=== PATIENT | female | born 1965 | race Caucasian/White ===

== ENCOUNTER 2025-06-26 09:33 | Emergency (ER) | payer OTHER ==
[~2025-06-26] VITALS: Ht 165.1 cm; Wt 88.5 kg
--- NOTE | 2025-06-26 10:15 | ED.PDOC ---
Back pain HPI HPI Comments A 61 YEAR OLD FEMALE PRESENTS TO THE ED WITH COMPLAINT OF NECK PAIN AND LEFT SIDE FACIAL PAIN. PT STATES SHE HAS BEEN HAVING NECK PAIN AND THE PAIN RADIATES TO BILATERAL UPPER EXTREMITY WITH NUMBNESS AND TINGLING SENSATION THAT STARTED EARLIER THIS AM AFTER WAKING FROM SLEEP. PER PT, SHE HAS HX OF NECK PAIN DUE TO WORK RELATED INJURY SINCE LAST YEAR. SHE ALSO HAS L JAW PAIN FROM INJURY LAST YEAR AND IS STILL HAVING PAIN. PT STATES SHE CAME FOR [facility] LAST YEAR AND STATES SHE HAD MRI WHICH SHOWED DDD OF C-SPINE. PT STATES [employer] HAS DONE NOTHING AND CAME TODAY FOR EXACERBATION OF HER SYMPTOMS BUT STATES SHE HAS NOT TAKEN PAIN MEDICATIONS. PATIENT DENIES NEW INJURY, FEVER, CHILLS, SHORTNESS OF BREATH, CHEST PAIN, ABDOMINAL PAIN, NAUSEA, VOMITING, HEADACHE, OR OTHER COMPLAINTS. NO OTHER SYMPTOMS OR MODIFYING FACTORS AT THIS TIME. PATIENT IS ALERT, ORIENTED X 4, AND HAS STEADY GAIT. Chief Complaint: Neck Pain Time Seen by MD: 10:12 Reviewed Notes: Nurses Notes, Medications, Allergies Allergies: Coded Allergies: Codeine (Verified Allergy, Intermediate, 06/26/25) Home Meds Active Scripts Acetaminophen (Tylenol 8 Hour Arthritis) 650 Mg Tab, 650 MG PO TID, #60 TAB Prov:LUCIANAPANCHO SOLORIO 06/26/25 Information Source: Patient Mode of Arrival: Ambulatory Brought in by: SELF Timing: Days, Came on: Gradually Duration: Since onset, Days Location of Back pain: (B) Cervical, Other (BILATERAL UPPER EXTREMITY. ) Severity: Moderate Prehospital treatment: Treatment Quality: Aching, Burning, Cramping Onset: Spontaneous Circumstance: Work Related History of: Chronic Back Pain Modifying Factors: Movement, Twisting Associated signs and symptoms: None Past Medical History Past Medical History (Other): DDD OF NECK Surgical History: Denies all surgeries [employer] History: No Pertinent [employer] History Family History Family History: Reviewed,noncontributory to illness Social History Smoker: Non-Smoker Alcohol: Denies ETOH Use Drugs: Denies Drug Use Lives In: Home Constitutional: denies: chills, diaphoresis, fatigue, fever, malaise, sweats, weakness, others EENTM: denies: blurred vision, double vision, ear bleeding, ear discharge, ear drainage, ear pain, ear ringing, eye pain, eye redness, hearing loss, mouth pain, mouth swelling, nasal discharge, nose bleeding, nose congestion, nose pain, photophobia, tearing, throat pain, throat swelling, voice changes, others Respiratory: denies: cough, hemoptysis, orthopnea, SOB at rest, shortness of breath, SOB with excertion, stridor, wheezing, others Cardiovascular: denies: chest pain, dizzy spells, diaphoresis, Dyspnea on exertion, edema, irregular heart beat, left arm pain, lightheadedness, palpitations, PND, syncope, others Gastrointestinal: denies: abdomen distended, abdominal pain, blood streaked bowels, constipated, diarrhea, dysphagia, difficulty swallowing, hematemesis, melena, nausea, poor appetite, poor fluid intake, rectal bleeding, rectal pain, vomiting, others Genitourinary: denies: abnormal vagina bleeding, burning, dyspareunia, dysuria, flank pain, frequency, hematuria, incontinence, pain, , vagina discharge, urgency, others Neurological: denies: dizziness, fainting, headache, left sided numbness, left sided weakness, numbness, paresthesia, pre-existing deficit, right sided numbness, right sided weakness, seizure, speech problems, tingling, tremors, weakness, others Musculoskeletal: reports: muscle pain, neck pain, others (LEFT SIDE JAW PAIN ); denies: back pain, gout, joint pain, joint swelling, muscle stiffness Integumetry: denies: bruises, change in color, change in hair/nails, dryness, laceration, lesions, lumps, rash, wounds, others Allergic/Immunocompromised: denies: Difficulty Healing, Frequent Infections, Hives, Itching, others Hematologic/Lymphatic: denies: anemia, blood clots, easy bleeding, easy bruising, swollen glands, others Endocrine: denies: excessive hunger, excessive sweating, excessive thirst, excessive urination, flushing, intolerance to cold, intolerance to heat, unexplained weight gain, unexplained weight loss, others Psychiatric: reports: anxiety; denies: bipolar disorder, depression, hopeless, panic disorder, schizophrenia, sleepless, suicidal, others All Other Systems: Reviewed and Negative Physical Exam General Appearance: Mild Distress, Obese, Other (ANXIETY ) HEENT: Normal ENT Inspection, PERRL/EOMI, Pharynx Normal, TMs Normal, Other (TENDERNESS ON LEFT SIDE JAW, NO BONY TENDERNESS, SWELLING AND DEFORMITY. ) Neck: Full Range of Motion, Normal Inspection, Supple, Tender Lateral (TENDERNESS AND MUSCLE SPASM ON POSTERIOR NECK, NO BONY TENDERNESS, SWELLING AND DEFORMITY. ) Respiratory: Chest Non-Tender, Lungs Clear, No Accessory Muscle Use, No Respir atory Distress, Normal Breath Sounds Cardiovascular: No Edema, No JVD, No Murmur, No Gallop, Normal Peripheral Pulses, Regular Rate/Rhythm Breast Exam: Deferred Gastrointestinal: No Organomegaly, Non Tender, No Pulsatile Mass, Normal Bowel Sounds, Soft Genitalia: Deferred Pelvic: Deferred Rectal: Deferred Extremities: No calf tenderness, Normal capillary refill, Normal inspection, Normal range of motion, Non-tender, No pedal edema Musculoskeletal : Apperance: Normal Neurologic: Alert, rum processing operator II-XII nml as Tested, No Motor Deficits, Normal Affect, Normal Mood, No Sensory Deficits Cerebellar Function: Normal Reflexes: Normal Skin: Dry, Normal Color, Warm Peripheral Pulses: 2+ carotid (R), 2+ carotid (L) Lymphatic: No Adenopathy Was a procedure done? Was a procedure done?: No Back Pain Differential Dx Differential Diagnosis: Musculoskeletal Pain, Strain, Other (DDD OF NECK, CHRONIC LEFT JAW PAIN ) X-Ray, Labs, Meds, VS Vital Signs Date Time Temp Pulse Resp B/P (MAP) Pulse Ox O2 Delivery O2 Flow Rate FiO2 06/26/25 11:36 102 18 95 Room Air 06/26/25 11:36 98.5 102 18 139/94 (109) 95 98.5 06/26/25 09:40 97.9 101 18 120/97 95 97.9 Current Medications Medications (Trade) Dose Ordered Sig/Jignesh Route Start Time Stop Time Status Last Admin Acetaminophen/ Hydrocodone Bitart ([place] 10/325MG Tab) 1 tab ONCE ONCE PO 06/26/25 11:00 06/26/25 11:01 DC 06/26/25 11:07 [place] [address] Ph: [phone] DIAGNOSTIC IMAGING Diagnostic Imaging Report : [id number] Signed PATIENT: CARINA HUTTON ACCT: [id number] UNIT: [id number] : 1965 LOC: ER ROOM / BED: / AGE / SEX: 60 / F ADM STATUS: REG ER SERVICE 1008 ORDERING PHYSICIAN: PANCHO CHOWDHURY PROCEDURE(s): MANDB - MANDIBLE COMPLETE MIN 4V REASON: LEFT JAW AND INJURY ONE YEAR AGO ORDER NUMBER(s): [id number], ACCESSION NUMBER(s): [id number] EXAM: XY MANDIBLE COMPLETE MIN 4V CLINICAL INDICATION: LEFT JAW AND INJURY ONE YEAR AGO TECHNIQUE: XY MANDIBLE COMPLETE MIN 4V Comparison: None FINDINGS/IMPRESSION: There is no evidence of acute fracture or dislocation. The visualized joint space is well maintained. The alignment is anatomical. There is no radiopaque foreign body. ATED BY: AMARILIS ORNELAS MD DICTATED DATE/TIME: 06/26/25 1100 SIGNED BY: AMARILIS ORNELAS MD SIGNED DATE/TIME: 06/26/25 1100 CC: [place] [address] Ph: [phone] DIAGNOSTIC IMAGING Diagnostic Imaging Report : [id number] Signed PATIENT: CARINA HUTTON ACCT: [id number] UNIT: [id number] : 1965 LOC: ER ROOM / BED: / AGE / SEX: 60 / F ADM STATUS: REG ER SERVICE 1008 ORDERING PHYSICIAN: PANCHO CHOWDHURY PROCEDURE(s): NKICT - NECK WITHOUT CONTRAST REASON: NECK PAIN TO BILATERAL ARMS, HX OF DDD ORDER NUMBER(s): [id number], ACCESSION NUMBER(s): [id number] EXAM: CT NECK WITHOUT CONTRAST INDICATION: NECK PAIN TO BILATERAL ARMS, HX OF DDD Exam Date: 06/26/2025 10:31 AM COMPARISON: XY MANDIBLE COMPLETE MIN 4V on DOS: 06/26/25 TECHNIQUE: CT of the neck without intravenous contrast. RADIATION DOSE: CTDIvol: 15.94 mGy, DLP: 443.2 mGy*cm FINDINGS: There is no evidence of cervical mass lesion, pathologically enlarged lymph nodes or fluid collection. Mild to moderate diffuse thickening of the esophagus; nonspecific. The fat planes of the neck appear intact. The airway and larynx are unremarkable. The parotid, submandibular and thyroid glands are unremarkable. The vascular structures of the neck appear patent. The visualized lung apices are clear. The limited visualized portions of the brain are unremarkable. Multilevel degenerative changes of the spine. IMPRESSION: No evidence of cervical mass lesion, pathologically enlarged lymph nodes or fluid collection. Mild to moderate diffuse thickening of the esophagus is nonspecific but may be seen in esophagitis. Clinical correlation advised. Multilevel degenerative changes of the spine. ATED BY: AUSTIN PUGH MD DICTATED DATE/TIME: 06/26/251124 SIGNED BY: AUSTIN PUGH MD SIGNED DATE/TIME: 06/26/251124 CC: X-Ray, Labs, Meds, VS Comment COURSE: EXTERNAL MEDICAL RECORDS REVIEWED: [NONE] INDEPENDENT HISTORIANS: [NONE] SOCIAL DETERMINANTS OF HEALTH: [NONE] LABS ORDERED: NONE REVIEWED AND INTERPRETED RESULTS: NONE IMAGING ORDERED: CT NECK W/O CONTRAST, MANDIBLE X-RAY TREATMENTS ORDERED: NORCO PO PROCEDURES PERFORMED: NONE CRITICAL CARE TIME: NONE I HAVE DISCUSSED THE PATIENT WITH THE ATTENDING PHYSICIAN DR. GILBERT AND HE AGREES WITH THE PATIENT'S PLAN OF CARE AND DISPOSITION. BASED ON HISTORY OF PRESENT ILLNESS, AND PHYSICAL EXAM, PATIENT WILL BE DISCHARGED HOME. DISCUSSED PLAN FOR DISCHARGE HOME WITH RX [TYLENOL 650MG ]. MEDICATION WARNINGS GIVEN. SHARED DECISION MAKING: DISCUSSED WITH PATIENT THAT THEIR WORKUP WAS NORMAL. PATIENT INSTRUCTED TO FOLLOW UP WITH PRIMARY CARE PROVIDER IN 1-2 DAYS FOR RE- EVALUATION OF SYMPTOMS. PATIENT VERBALIZES UNDERSTANDING TO RETURN TO ED FOR NEW OR WORSENING SYMPTOMS OR IF FOLLOW UP WITH PCP CANNOT BE OBTAINED. PATIENT FEELS COMFORTABLE GOING HOME AT THIS TIME. ALL QUESTIONS ADDRESSED AT TIME OF DISCHARGE. Time of 1ST Reevaluation: 11:50 Reevaluation 1ST: Improved Patient Education/Counseling: Diagnosis, Treatment, Need For Follow Up Family Education/Counseling: Diagnosis, Treatment, Need For Follow Up, No Family Present Medical Screening: No EMC Exist At This Time SEPSIS Sepsis Screen Date sepsis recognized/suspect: Jun 26, 2025 Time Sepsis recognized/suspect: 0943 Recent Procedure: No On Antibiotic Therapy: No Respiratory Rate >20: No Heart Rate >90: No Temp<36 C (96.8 F) or >38.3 C: No SBP <90 or MAP <65 mmHG: No New Acute Mental Status Change: No Is the patient on CPAP, BIPAP,: No Physician Orders Mandible Complete Min 4v (06/26/25 10:08) Neck Without Contrast (06/26/25 10:08) Vital Signs Date Time Temp Pulse Resp B/P (MAP) Pulse Ox O2 Delivery O2 Flow Rate FiO2 06/26/25 11:36 102 18 95 Room Air 06/26/25 11:36 98.5 102 18 139/94 (109) 95 98.5 06/26/25 09:40 97.9 101 18 120/97 95 97.9 Departure 1 Departure Time of Disposition: 11:50 Impression: Primary Impression: DDD (degenerative disc disease), cervical Additional Impressions: Cervical radiculopathy Jaw pain Disposition: HOME / SELF CARE / HOMELESS Condition: Stable Additional Instructions: INSTRUCTIONS: FOLLOW-UP WITH [employer] IN 1 TO 2 DAYS. TAKE MEDICATIONS PRESCRIBED. RETURN TO ED FOR ANY NEW OR WORSENING SYMPTOMS. e-Prescriptions Acetaminophen (Tylenol 8 Hour Arthritis) 650 Mg Tab 650 MG PO TID, #60 TAB Prov: PANCHO CHOWDHURY 06/26/25 Discharged With: Self, Relative Critical Care Note Critical Care Time?: No Stability Stability form required: No Heart Score Heart Score: Heart Score Response (Comments) Value History N/A 0 EKG N/A 0 Age N/A 0 Risk Factors N/A 0 Troponin N/A 0 Total 0 I personally scribed for PANCHO CHOWDHURY ([email or web address]) on 06/26/25 at 10:15. Electronically submitted by Meche Oreilly ([email or web address]). I personally scribed for PANCHO CHOWDHURY ([email or web address]) on 06/26/25 at 10:16. Electronically submitted by Meche Oreilly ([employer]). I personally scribed for PANCHO CHOWDHURY ([email or web address]) on 06/26/25 at 11:30. Electronically submitted by Meche Oreilly ([email or web address]). I personally scribed for PANCHO CHOWDHURY ([email or web address]) on 06/26/25 at 11:31. Electronically submitted by Meche Oreilly ([employer]). PANCHO CHOWDHURY Jun 26, 2025 10:15
--- NOTE | 2025-06-26 11:02 | DVH ---
EXAM: XY MANDIBLE COMPLETE MIN 4V CLINICAL INDICATION: LEFT JAW AND INJURY ONE YEAR AGO TECHNIQUE: XY MANDIBLE COMPLETE MIN 4V Comparison: None FINDINGS/IMPRESSION: There is no evidence of acute fracture or dislocation. The visualized joint space is well maintained. The alignment is anatomical. There is no radiopaque foreign body.
[2025-06-26] MEDS: HYDROcodone-ACET 10/325MG TAB PO ONE (11:07)
--- NOTE | 2025-06-26 11:27 | DVH ---
EXAM: CT NECK WITHOUT CONTRAST INDICATION: NECK PAIN TO BILATERAL ARMS, HX OF DDD Exam Date: 06/26/2025 10:31 AM COMPARISON: XY MANDIBLE COMPLETE MIN 4V on DOS: 06/26/25 TECHNIQUE: CT of the neck without intravenous contrast. RADIATION DOSE: CTDIvol: 15.94 mGy, DLP: 443.2 mGy*cm FINDINGS: There is no evidence of cervical mass lesion, pathologically enlarged lymph nodes or fluid collection. Mild to moderate diffuse thickening of the esophagus; nonspecific. The fat planes of the neck appear intact. The airway and larynx are unremarkable. The parotid, submandibular and thyroid glands are unremarkable. The vascular structures of the neck appear patent. The visualized lung apices are clear. The limited visualized portions of the brain are unremarkable. Multilevel degenerative changes of the spine. IMPRESSION: No evidence of cervical mass lesion, pathologically enlarged lymph nodes or fluid collection. Mild to moderate diffuse thickening of the esophagus is nonspecific but may be seen in esophagitis. Clinical correlation advised. Multilevel degenerative changes of the spine.
[2025-06-26 11:36] VITALS: BP 139/94; PULSE 102; RESP 18; TEMP 98.5; O2SAT 95
[2025-06-26] MEDS ORDERED: ACET-1080 PO (11:38)
== END 2025-06-26 11:43 | disposition home or self-care (01) ==
LOC: ER 09:33
DX: M47.22 Other spondylosis with radiculopathy, cervical region (principal); M50.10 Cervical disc disorder with radiculopathy, unspecified cervical region; Z88.5 Allergy status to narcotic agent; R68.84 Jaw pain
CPT/HCPCS: 70110; 70490